=== PATIENT | female | born 1980 | race American Indian/Alaskan Native ===

== ENCOUNTER 2019-02-08 06:27 | Day surgery (SDC) | payer OTHER ==
[~2019-02-08 06:27] MED LIST: LACTATED RINGERS 1,000 ML IV SCH
[2019-02-08] MEDS ORDERED: DIPRIVAN 10 MG/ML IV ONE (07:18)
[2019-02-08] MEDS ORDERED: DILAUDID ONE (07:18)
[2019-02-08] MEDS ORDERED: XYLOCAINE MPF 2% ONE (07:19)
[2019-02-08] MEDS ORDERED: ADRENALINE P/F ONE (07:25)
[2019-02-08] MEDS ORDERED: NACL 0.9% 1000 ML 1,000 ML ONE (07:25)
[2019-02-08] MEDS ORDERED: XYLOCAINE 1% 20 mL ONE (07:25)
--- NOTE | 2019-02-08 07:28 | Anesthesia Day of Surgery ---
Anesthesia Day of Surgery - Day of Surgery Patient Examined: Yes Patient H&P Reviewed: Yes Patient is NPO: Yes
--- NOTE | 2019-02-08 07:28 | Anesthesia Consultation ---
Anesthesia Consult and Med Hx Date of service: 02/08/19 - Airway Anesthetic Teeth Evaluation: Good ROM Head & Neck: Adequate Mental/Hyoid Distance: Adequate Mallampati Class: Class II Intubation Access Assessment: Probably Good - Pre-Operative Health Status ASA Pre-Surgery Classification: ASA2 Proposed Anesthetic Plan: General - Central Nervous System Hx Back Pain: Yes Hx Psychiatric Problems: No - Other Systems Hx Alcohol Use: Yes Hx Obesity: Yes (BMI 35.0)
[2019-02-08] MEDS ORDERED: ANCEF/STERILE WATER 2 GM/20 ML 2 GM/20 ML SYRINGE IV ONE (07:30)
[2019-02-08] MEDS ORDERED: DILAUDID IV PRN (07:31)
[2019-02-08] MEDS ORDERED: ZOFRAN IV PRN ×2 (07:31→12:38)
[2019-02-08] MEDS ORDERED: XYLOCAINE 1%/ EPI 1:100,000 INFILTRATI ONE (07:37)
[2019-02-08] MEDS ORDERED: ADRENALINE P/F IRRIGATION ONE (07:48)
[2019-02-08] MEDS ORDERED: NACL 0.9% 1000 ML IR ONE (07:48)
[2019-02-08] MEDS ORDERED: NACL 0.9% IR ONE (07:48)
[2019-02-08] MEDS ORDERED: XYLOCAINE 1% 20 mL INFILTRATI ONE (07:48)
[2019-02-08] MEDS ORDERED: XYLOCAINE/EPI 1% 1:50,000 (OR) INFILTRATI ONE (07:48)
[2019-02-08] MEDS ORDERED: VERSED IV NR (08:00)
[2019-02-08] MEDS ORDERED: ROBINUL ONE (08:06)
[2019-02-08] MEDS ORDERED: LACTATED RINGERS 1,000 ML ONE (11:21)
[2019-02-08] MEDS ORDERED: SUBLIMAZE ONE (11:57)
[2019-02-08] MEDS ORDERED: IBUPROFEN PO PRN (12:38)
[2019-02-08] MEDS ORDERED: NORCO 7.5/325 PO PRN (12:38)
[2019-02-08] MEDS ORDERED: TORADOL ONE (12:44)
[2019-02-08] MEDS ORDERED: ANCEF ONE (12:52)
[2019-02-08 13:40] VITALS: BP 131/85
--- NOTE | 2019-02-08 16:40 | Post Anesthesia Evaluation ---
- Post Anesthesia Evaluation Patient Participated: Yes Airway Patent: Yes Stable Respiratory Function: Yes Nausea/Vomiting: No Temp > 96.8F: Yes Pain Manageable: Yes Adequeate Hydration: Yes Anesthesia Complications: No
--- NOTE | 2019-02-27 15:12 | Operative Report ---
Operative Report Operative Report: Preoperative Diagnosis: Symptomatic bilateral macromastia Post Operative Diagnosis: Same Procedure: Bilateral breast reduction Surgeon: Dr. Suzie Reilly Lard Mixer: MARKY Westbrook Specimens: Right and left breast tissue, excised 860g and 880g EBL: 50cc Procedure: After review of pertinent history and physical exam findings the patient was brought into the operating room and placed supine on the OR table. After induction of adequate general anesthesia the patient's chest was prepped and draped in the usual sterile surgical fashion. To begin, galvez were refreshed and measurements double checked and we reduced the right breast as follows: A 9cm inferior pedicle was outlined and de-epithelialized save the nipple and areola complex, which was measured out using a 4.5cm diameter and left completely attached to the inferior pedicle. After this, following a Hogan pattern, skin incisions were made to elevate breast flaps superiorly and excise excess tissue on the medial and lateral aspect of the pedicle. Hemostasis was maintained with electrocautery. Saline solution was then used to irrigate the breast tissue and, satisfied with hemostasis and volume, we began to a 3-layered closure using 2-0 Monocryl and 3-0 Monoderm sutures. The same procedure was performed on the left side, with tissue re-arrangement and excision based on an inferior pedicle being performed to preserve the nipple areolar complex and as much breast tissue as possible for symmetry. A total of 860g was removed from the right breast; 880g was removed from the left. Once all incisions were closed, they were sealed with Dermabond and dressed with Telfa and tegaderm dressings. This was followed by placement of a surgical bra. The patient was then awakened from general anesthesia and transferred to PACU in stable condition. There were no complications. All sponge needle and instrument counts were correct at the end of the case.
== END 2019-02-08 06:28 | disposition home or self-care (01) ==
LOC: OR 06:27
PROVIDERS: ATTEND Plastic Surgery
DX: D24.1 Benign neoplasm of right breast (principal); D24.2 Benign neoplasm of left breast; E66.9 Obesity, unspecified; Z68.35 Body mass index [BMI] 35.0-35.9, adult; Z72.89 Other problems related to lifestyle
CPT/HCPCS: 19318; 81025; 88305; J0171; J0690; J1170; J1885; J2250; J2405; J2704; J3010; J7030; J7120